=== PATIENT | female | born 1960 | race Caucasian/White ===

== ENCOUNTER 2017-01-09 10:41 | Outpatient (CLI) | payer BC | END 2017-01-09 10:42 | disposition home or self-care (01) | DX: Z00.00 Encounter for general adult medical examination without abnormal findings (principal) ==

== ENCOUNTER 2018-03-02 21:44 | Emergency (ER) | payer BC ==
--- NOTE | 2018-03-02 21:58 | ED Physician Documentation ---
PD HPI UPPER EXT INJURY - Stated complaint Stated Complaint: GLF/RT WRIST PX - Chief complaint Chief Complaint: Ext Problem - History obtained from History obtained from: Patient - History of Present Illness Location: Right, Wrist, Other (also abrasion of her lower thoracic back) Type of injury: Fall (she was trying to move her dryer and she tripped on threshold and fell backward, abrasion to right lower back, and tried to catch fall with right hand, causing pain at right wrist. Did not hit head.) Timing - onset: Today Timing - details: Abrupt onset Improved by: Immobilization Worsened by: Moving, Palpating Associated symptoms: Swelling. No: Weakness, Numbness Similar symptoms before: Has not had sx before Recently seen: Not recently seen Review of Systems Constitutional: denies: Fever, Chills Nose: denies: Rhinorrhea / runny nose, Congestion Throat: denies: Sore throat Cardiac: denies: Chest pain / pressure Respiratory: denies: Cough GI: denies: Abdominal Pain, Nausea, Vomiting, Diarrhea Skin: reports: Abrasion (s). denies: Laceration (s) Neurologic: denies: Altered mental status, Headache, Head injury PD PAST MEDICAL HISTORY - Past Medical History Past Medical History: Yes Respiratory: Asthma Musculoskeletal: Osteoarthritis, Chronic back pain - Past Surgical History Past Surgical History: Yes Ortho: Spine surgery HEENT: Tonsil/Adenoidectomy - Allergies Allergies/Adverse Reactions: Allergies Allergy/AdvReac Type Severity Reaction Status Date / Time iodine Allergy Edema Verified 03/02/18 23:07 - Social History Does the pt smoke?: No Smoking Status: Never smoker Does the pt drink ETOH?: Yes Does the pt have substance abuse?: No - Immunizations Immunizations are current?: Yes - POLST Patient has POLST: No PD ED PE NORMAL - Vitals Vital signs reviewed: Yes - General General: Alert and oriented X 3, No acute distress, Well developed/nourished - HEENT HEENT: Atraumatic - Cardiac Cardiac: RRR, No murmur - Respiratory Respiratory: Clear bilaterally - Abdomen Abdomen: Soft, Non tender - Back Back: No spinal TTP, Other (abrasions superficial right lower back. ) - Derm Derm: Normal color, Warm and dry - Extremities Extremities: Other (right wrist tender with some swelling but no deformity. ) - Neuro Neuro: Alert and oriented X 3, No motor deficit, No sensory deficit Results - Vitals Vitals: Oxygen O2 Source Room air - Rads (name of study) right wrist Radiology: Prelim report reviewed, EMP read contemporaneously PD MEDICAL DECISION MAKING - ED course Complexity details: reviewed results (no fracture), considered differential, d/ w patient Departure - Departure Disposition: 01 Home, Self Care Clinical Impression: Fall from slip, trip, or stumble Qualifiers: Encounter type: initial encounter Qualified Code(s): W01.0XXA - Fall on same level from slipping, tripping and stumbling without subsequent striking against object, initial encounter Abrasion of back Qualifiers: Encounter type: initial encounter Laterality: right Qualified Code(s): S20.411A - Abrasion of right back wall of thorax, initial encounter Right wrist sprain Qualifiers: Encounter type: initial encounter Qualified Code(s): S63.501A - Unspecified sprain of right wrist, initial encounter Condition: Stable Record reviewed to determine appropriate education?: Yes Instructions: ED Abrasion, ED Sprain Wrist Follow-Up: Izaiah Pérez, DO [Primary Care Provider] - Comments: Your x-ray appears normal without any fractures. You can use a wrist splint for the sprain and use it to protect and support the wrist. Discontinue use when it feels better enough. Tylenol or ibuprofen if needed for pains. Continue your other medications at home. Discharge Date/Time: 03/02/18 23:08
[2018-03-02 22:04] VITALS: BP 117/68
--- NOTE | 2018-03-02 22:35 | XRAY Report ---
EXAM: RIGHT WRIST RADIOGRAPHY EXAM DATE: 03/02/2018 10:27 PM. CLINICAL HISTORY: Fall, pain. COMPARISON: None. TECHNIQUE: 3 views. FINDINGS: Bones: Normal. No fractures or bone lesions. Joints: Normal. No subluxations. Soft Tissues: Mild soft tissue swelling. Pronator fat pad not distended. IMPRESSION: Soft tissue swelling. [facility] Referring Provider Line: [phone] SITE ID: [id number]
== END 2018-03-02 23:08 | disposition home or self-care (01) ==
LOC: ED 21:44
DX: S63.501A Unspecified sprain of right wrist, initial encounter (principal); S30.810A Abrasion of lower back and pelvis, initial encounter; W01.0XXA Fall on same level from slipping, tripping and stumbling without subsequent striking against object, initial encounter; Y93.E6 Activity, residential relocation; J45.909 Unspecified asthma, uncomplicated; M19.90 Unspecified osteoarthritis, unspecified site
CPT/HCPCS: 99283

== ENCOUNTER 2018-06-08 13:02 | Outpatient (CLI) | payer BC | END 2018-06-08 13:03 | disposition home or self-care (01) | LOC: SC 13:02 | PROVIDERS: ATTEND Internal Medicine Pulmonary Disease | DX: G47.30 Sleep apnea, unspecified (principal); G47.10 Hypersomnia, unspecified; G47.8 Other sleep disorders; E66.9 Obesity, unspecified; Z68.37 Body mass index [BMI] 37.0-37.9, adult | CPT/HCPCS: 99203; 99212 ==

== ENCOUNTER 2018-07-07 14:15 | Outpatient (CLI) | payer BC | END 2018-07-07 14:16 | disposition home or self-care (01) | LOC: SC 14:15 | PROVIDERS: ATTEND Nurse Practitioner Family | DX: G47.33 Obstructive sleep apnea (adult) (pediatric) (principal) | CPT/HCPCS: 99212; 99214 ==

== ENCOUNTER 2018-08-30 15:00 | Outpatient (CLI) | payer BC | END 2018-08-30 15:01 | disposition home or self-care (01) | LOC: SC 15:00 | PROVIDERS: ATTEND Internal Medicine Pulmonary Disease | DX: G47.33 Obstructive sleep apnea (adult) (pediatric) (principal) | CPT/HCPCS: 99212; 99213 ==

== ENCOUNTER 2018-10-04 14:13 | Outpatient (CLI) | payer BC | END 2018-10-04 14:14 | disposition home or self-care (01) | LOC: SC 14:13 | PROVIDERS: ATTEND Internal Medicine Pulmonary Disease | DX: G47.33 Obstructive sleep apnea (adult) (pediatric) (principal) | CPT/HCPCS: 99212; 99213 ==

== ENCOUNTER 2020-08-06 13:24 | Outpatient (CLI) | payer BC ==
[2020-08-06 14:05] LABS: CHOL/HDL RATIO 2.7 (<4.4); CHOLESTEROL 228 mg/dL; HDL CHOLESTEROL 85 mg/dL; LDL CHOLESTEROL,CALCULATED 117 mg/dL; LDL/HDL RATIO 1.4 (<4.4); VLDL CHOLESTEROL 26 mg/dL
[2020-08-06 14:39] LABS: HEMOGLOBIN A1c% 5.1 % (4.27-6.07)
== END 2020-08-06 13:25 | disposition home or self-care (01) ==
LOC: LAB 13:24
PROVIDERS: ATTEND Family Medicine
DX: Z00.00 Encounter for general adult medical examination without abnormal findings (principal); R73.01 Impaired fasting glucose; Z13.220 Encounter for screening for lipoid disorders; Z13.29 Encounter for screening for other suspected endocrine disorder; Z98.84 Bariatric surgery status
CPT/HCPCS: 36415; 80061; 82607; 83036; 83721; 84443

== ENCOUNTER 2020-10-01 08:26 | Day surgery (SDC) | payer BC ==
[2020-10-01] MEDS ORDERED: MIDAZOLAM 2 MG/2 ML VIAL IVP ONE (08:27)
[2020-10-01] MEDS ORDERED: fentaNYL 250 MCG/5 ML VIAL IVP ONE (08:27)
[2020-10-01] MEDS ORDERED: LACTATED RINGERS 1,000 ML IV ONE (09:31)
[2020-10-01] MEDS ORDERED: SIMETHICONE 40 MG/0.6 ML 30 ML BOTTLE ONE (13:08)
[2020-10-01] MEDS ORDERED: LACTATED RINGERS 700 ML IV ONE (13:10)
[2020-10-01 13:45] VITALS: BP 99/47
== END 2020-10-01 08:27 | disposition home or self-care (01) ==
LOC: SDS 08:26
PROVIDERS: ATTEND Surgery
DX: Z12.11 Encounter for screening for malignant neoplasm of colon (principal); K57.30 Diverticulosis of large intestine without perforation or abscess without bleeding; K64.8 Other hemorrhoids; Z80.0 Family history of malignant neoplasm of digestive organs; Z15.01 Genetic susceptibility to malignant neoplasm of breast
CPT/HCPCS: 45378; A9270; J3010; J7120

== ENCOUNTER 2021-08-22 08:10 | Outpatient (CLI) | payer BC ==
[2021-08-22 12:37] LABS: % IRON SATURATION 26 % (20-50); ALBUMIN 4.5 g/dL (3.2-5.5); ALKALINE PHOSPHATASE 47 IU/L (42-121); ALT ALANINE AMINOTRANSFERASE 26 IU/L (10-60); AST ASPARTATE AMINOTRANSFERASE 28 IU/L (10-42); BILIRUBIN,TOTAL 0.5 mg/dL (0.2-1.0); BUN - BLOOD UREA NITROGEN 10 mg/dL (6-20); CALCIUM 9.8 mg/dL (8.5-10.3); CARBON DIOXIDE - CO2 33 mmol/L (21-32); CHLORIDE 103 mmol/L (101-111); CHOL/HDL RATIO 2.4 (<4.4); CHOLESTEROL 219 mg/dL; CREATININE 0.5 mg/dL (0.4-1.0); GFR - MDRD 125 (>89); GLUCOSE 93 mg/dL (70-100); HDL CHOLESTEROL 90 mg/dL; IRON 85 ug/dL (28-170); LDL CHOLESTEROL,CALCULATED 114 mg/dL; LDL/HDL RATIO 1.3 (<4.4); POTASSIUM 4.3 mmol/L (3.5-5.0); SODIUM 145 mmol/L (135-145); TOTAL IRON BINDING CAPACITY 333 ug/dL (250-450); TOTAL PROTEIN 6.7 g/dL (6.7-8.2); TRANSFERRIN 238 mg/dL (192-382); TRIGLYCERIDES 75 mg/dL; VLDL CHOLESTEROL 15 mg/dL
[2021-08-22 12:46] LABS: THYROID STIMULATING HORMONE 1.09 uIU/mL (0.34-5.60)
[2021-08-22 12:52] LABS: FERRITIN 244.8 ng/mL (11.0-306.8)
[2021-08-22 12:54] LABS: ESTIMATED AVERAGE GLUCOSE 103 mg/dL (70-100); HEMOGLOBIN A1c% 5.2 % (4.27-6.07)
[2021-08-22 13:04] LABS: BASOPHILS % (AUTO) 0.4 %; EOSINOPHILS % (AUTO) 0.7 %; HCT - HEMATOCRIT 39.7 % (37.0-47.0); LYMPHOCYTES # (AUTO) 1.1 10^3/uL (1.5-3.5); LYMPHOCYTES % (AUTO) 20.3 %; MEAN CORPUSCULAR HEMOGLOBIN 30.3 pg (27.0-31.0); MEAN CORPUSCULAR HGB CONC 32.7 g/dL (32.0-36.0); MEAN CORPUSCULAR VOLUME 92.5 fL (81.0-99.0); MEAN PLATELET VOLUME 10.8 fL (7.9-10.8); MONOCYTES # (AUTO) 0.3 10^3/uL (0.0-1.0); MONOCYTES % (AUTO) 5.6 %; NEUTROPHILS % (AUTO) 72.8 %; PLT - PLATELET COUNT 212 10^3/uL (130-450); RED BLOOD COUNT 4.29 10^6/uL (4.20-5.40); RED CELL DISTRIBUTION WIDTH 12.4 % (12.0-15.0); WHITE BLOOD COUNT 5.5 x10^3/uL (4.8-10.8)
== END 2021-08-22 08:11 | disposition home or self-care (01) ==
LOC: LAB.N 08:10
PROVIDERS: ATTEND Family Medicine
DX: Z00.00 Encounter for general adult medical examination without abnormal findings (principal); R73.01 Impaired fasting glucose; Z98.84 Bariatric surgery status
CPT/HCPCS: 36415; 80053; 80061; 82728; 83036; 83540; 83721; 83970; 84443; 84466; 85025

== ENCOUNTER 2021-09-27 09:17 | Outpatient (CLI) | payer BC ==
--- NOTE | 2021-09-27 09:39 | XRAY Report ---
PROCEDURE: Hand 2 View RT INDICATIONS: CONTUSION OF RIGHT HAND TECHNIQUE: 2 views of the hand(s) acquired. COMPARISON: None available. FINDINGS: BONES: No acute, displaced fracture or dislocation. Mild osteophytosis about the first interphalangea l joint. SOFT TISSUES: No focal abnormality. IMPRESSION: 1.No acute osseous abnormality. Reviewed by: Dante Watson MD on 09/27/2021 9:37 AM PST Approved by: Dante Watson MD on 09/27/2021 9:37 AM PST Station ID: [id number]
== END 2021-09-27 23:59 | disposition home or self-care (01) ==
LOC: DI.N 09:17
PROVIDERS: ATTEND Physician Assistant
DX: S60.221A Contusion of right hand, initial encounter (principal)

== ENCOUNTER 2023-01-29 10:48 | Outpatient (CLI) | payer BC ==
[2023-01-29 18:03] LABS: BASOPHILS % (AUTO) 0.6 %; EOSINOPHILS % (AUTO) 0.9 %; HCT - HEMATOCRIT 38.1 % (37.0-47.0); HGB - HEMOGLOBIN 12.3 g/dL (12.0-16.0); LYMPHOCYTES # (AUTO) 1.3 10^3/uL (1.5-3.5); LYMPHOCYTES % (AUTO) 37.9 %; MEAN CORPUSCULAR HEMOGLOBIN 29.4 pg (27.0-31.0); MEAN CORPUSCULAR HGB CONC 32.3 g/dL (32.0-36.0); MEAN CORPUSCULAR VOLUME 90.9 fL (81.0-99.0); MEAN PLATELET VOLUME 11.1 fL (7.9-10.8); MONOCYTES # (AUTO) 0.2 10^3/uL (0.0-1.0); MONOCYTES % (AUTO) 6.9 %; NEUTROPHILS # (AUTO) 1.9 10^3/uL (1.5-6.6); NEUTROPHILS % (AUTO) 53.4 %; PLT - PLATELET COUNT 231 10^3/uL (130-450); RED BLOOD COUNT 4.19 10^6/uL (4.20-5.40); RED CELL DISTRIBUTION WIDTH 12.5 % (12.0-15.0); WHITE BLOOD COUNT 3.5 x10^3/uL (4.8-10.8)
[2023-01-29 18:17] LABS: ALBUMIN 4.3 g/dL (3.2-5.5); ALBUMIN/GLOBULIN RATIO 1.7 (1.0-2.2); ALKALINE PHOSPHATASE 48 IU/L (42-121); ALT ALANINE AMINOTRANSFERASE 23 IU/L (10-60); AST ASPARTATE AMINOTRANSFERASE 25 IU/L (10-42); BILIRUBIN,TOTAL 0.4 mg/dL (0.2-1.0); BUN - BLOOD UREA NITROGEN 13 mg/dL (6-20); CALCIUM 9.4 mg/dL (8.5-10.3); CARBON DIOXIDE - CO2 32 mmol/L (21-32); CHLORIDE 103 mmol/L (101-111); CHOL/HDL RATIO 2.5 (<4.4); CHOLESTEROL 226 mg/dL; CREATININE 0.5 mg/dL (0.4-1.0); GFR - MDRD 124 (>89); GLUCOSE 89 mg/dL (70-100); HDL CHOLESTEROL 90 mg/dL; LDL CHOLESTEROL,CALCULATED 121 mg/dL; LDL/HDL RATIO 1.3 (<4.4); POTASSIUM 4.2 mmol/L (3.5-5.0); SODIUM 141 mmol/L (135-145); TOTAL PROTEIN 6.9 g/dL (6.7-8.2); TRIGLYCERIDES 74 mg/dL; VLDL CHOLESTEROL 15 mg/dL
[2023-01-29 18:28] LABS: THYROID STIMULATING HORMONE 0.93 uIU/mL (0.34-5.60)
== END 2023-01-29 10:49 | disposition home or self-care (01) ==
LOC: LAB.N 10:48
PROVIDERS: ATTEND Orthopaedic Surgery
DX: Z00.00 Encounter for general adult medical examination without abnormal findings (principal); M48.062 Spinal stenosis, lumbar region with neurogenic claudication; Z13.220 Encounter for screening for lipoid disorders; Z13.29 Encounter for screening for other suspected endocrine disorder
CPT/HCPCS: 36415; 80053; 80061; 83721; 84443; 85025

== ENCOUNTER 2024-01-19 13:04 | Outpatient (CLI) | payer BC ==
--- NOTE | 2024-01-19 13:52 | Sleep Patient Instructions ---
Sleep Center Visit Summary - Patient Visit Information Reason for Visit: Initial consultation - Patient Instructions Additional Instructions: You will continue with CPAP therapy with pressure changed to 5-9 cmH2O. A supply prescription will be updated with your DME. I have added an order to get a new machine, please call when you get your new CPAP to set up a compliance followup. We encourage you to continue to try to lose weight. Please follow up with the sleep care office one month after getting new CPAP. - Clinic Information Contact: [facility] [address] [place] [address] [email or web address] T: [phone]
--- NOTE | 2024-01-19 14:02 | SLEEP CARE CONSULTATION ---
Information from patient questionnaire entered by Delia Gray. I have reviewed and concur with the information entered by Delia Gray. This document represents the service I personally performed and the decisions made by me, Anu Moore ARNP. History of Present Illness Service Date and Time: 01/19/2024 1304 Reason for Visit: New patient, Previously diagnosed sleep apnea, sleep apnea on CPAP therapy, Re-establish care Chief Complaint: reports: Other ([employer] FOUND HIGH CO2 LEVELS ) Date of Onset: UNKNOWN Usual bedtime: 1030-11PM Time it takes to fall asleep: 5-10MIN Snores at night: Yes Observed to quit breathing while asleep: Yes Sleeps alone due to snoring: No Number of times waking at night: 1-2 Reasons for waking at night: reports: Pain Toss, Turn, or Twitch while sleeping: Yes Recalls having dreams: No Usually gets out of bed at: 0525 Feels refreshed in the morning: Yes Morning headache: Yes Sleepy or fatigued during the day: No Ever fallen asleep while driving: No Takes day naps: No Dreams during day naps: No Prior sleep studies: Yes (2018 MER[facility]ED WITH [facility]) Additional HPI information: NITESH GONZALES was previously diagnosed to have moderate, AHI 17.1, obstructive sleep apnea-hypopnea syndrome in a study done in 2018 and comes in today to establish care for CPAP therapy. Her current complaints are high C02 levels detected by PCP. - Parasomnia Symptoms Walks in sleep: No Talks in sleep: No Ever acted out dreams in sleep: No Ever felt weak in the knees when startled or emotional: No Bothered by creepy, crawly, restless sensations in legs: Yes Problems with memory or concentration: No CPAP Compliance Data - Data Reviewed with Patient Average duration of nightly device use: 6 hours 4 minutes Compliance rate %: 94 (89/90 days used) Current pressure setting (cmH2O): 4-8 Average residual AHI: 3 Central apnea: 0.9 Obstructive apnea: 1.5 Hypopnea: 0.5 Average large leak: 3.3 L/min Compliance data discussion: She has a ResMed Airsense 10 that she received in 2018. She buys her supplies online. She uses a nasal mask, Jeovany Dreamwear, small cushion, small/med headgear. Subjective Patient concerns: denies: aerophagia, mask discomfort, air blowing in eyes, mask leak noise, condensation in mask/hose, nasal congestion, dry mouth, nose, throat, epistaxis Observed to snore while using device: No Current pressure setting perceived as: comfortable On therapy, patient: reports: sleeping better, awakening more refreshed, being more awake and alert during the day, more rested overall. 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 Patient is / and lives in [place]. Have you smoked in the past 12 months: No Cigarettes per day (20/pack): 10 Years of smokin Quit date: 1999 Smoking Pack Years: 11.5 Alcohol use: Yes Alcohol amount and frequency: 1-2 DRINKS SELDOM Caffeine use: Yes Caffeine amount and frequency: 4 CUPS DAILY Family History Family history of sleep disordered breathing: Yes Family Hx Sleep Apnea: Mother: Snoring (CHILD), Father: Snoring, Sibling: Sn oring, Other: Snoring Allergies and Home Medications Known drug allergies: Yes ( LISTED ) Drug allergies reviewed: Yes Home medication list reviewed: Yes (as listed) Allergy and home medication list: Allergies iodine Allergy (Verified 01/15/24 13:51) Edema adhesive Adverse Reaction (Verified 01/15/24 13:51) Unknown bee venom protein (honey bee) Adverse Reaction (Verified 01/15/24 13:51) Unknown shellfish derived Adverse Reaction (Verified 01/15/24 13:51) Unknown pollen Adverse Reaction (Uncoded 01/15/24 13:51) Unknown Home Medications Medication Instructions Recorded Confirmed Last Taken Type Albuterol Sulf [Ventolin Hfa 1 - 2 puffs PO Q4HR PRN 01/02/20 01/19/24 Unknown History Inhaler] Baria Tric Calcium 2 tab PO DAILY 01/02/20 01/19/24 Unknown History Epi-Pen 1 applic SQ ONCE PRN 01/02/20 01/19/24 Unknown History Escitalopram [Lexapro] 10 mg PO DAILY 01/02/20 01/19/24 Unknown History Fexofenadine HCl [Fay Allergy] 180 mg PO DAILY 01/02/20 01/19/24 09/30/20 History Fluticasone [Flonase] 1 spray FAISAL DAILY 01/02/20 01/19/24 Unknown History Gabapentin 300 mg PO QPM 01/02/20 01/19/24 09/30/20 History Multivit-Min/Iron/Folic Acid/K 2 cap PO DAILY 01/02/20 01/19/24 09/28/20 History [Bariatric Mv-Iron 45 mg Cap] Vitamin A 2,500 unit PO DAILY 01/02/20 01/19/24 09/28/20 History Albuterol Sulf [Ventolin Hfa See Rx Instructions .ROUTE .COMPLEX 01/19/24 01/19/24 Unknown History Inhaler] Calcium Carbonate [Calcium] See Rx Instructions .ROUTE .COMPLEX 01/19/24 01/19/24 Unknown History Celecoxib [Celebrex] See Rx Instructions .ROUTE .COMPLEX 01/19/24 01/19/24 Unknown History Cholecalciferol (Vitamin D3) See Rx Instructions .ROUTE .COMPLEX 01/19/24 01/19/24 Unknown History [Vitamin D3] Cyanocobalamin (Vitamin B-12) See Rx Instructions .ROUTE .COMPLEX 01/19/24 01/19/24 Unknown History [Vitamin B12] Cyclobenzaprine HCl See Rx Instructions .ROUTE .COMPLEX 01/19/24 01/19/24 Unknown History Escitalopram [Lexapro] See Rx Instructions .ROUTE .COMPLEX 01/19/24 01/19/24 Unknown History Estradiol [Vagifem] See Rx Instructions .ROUTE .COMPLEX 01/19/24 01/19/24 Unknown History Wellbutrin Xl See Rx Instructions .ROUTE .COMPLEX 01/19/24 01/19/24 Unknown History Review of Systems Weight gain over past 5 years: 30, in last year Cardiovascular: denies: high blood pressure Respiratory: reports: wheeze Urinary: reports: incontinence Neurological: reports: headaches Ear/Nose/Throat: reports: nasal congestion, sinus problems, injury to nose Endocrine: reports: increased appetite Immunologic: reports: sneezing, allergies to food or environment Physical Exam Vital signs obtained and entered by: DELIA Adkins MA Blood Pressure: 115/56 (LEFT ARM) Cuff size: regular Heart Rate: 87 O2 Saturation: 98 Height: 5 ft 7 in Weight: 193 lb 3.2 oz Body Mass Index: 30.2 BMI Classification: Obese Neck circumference: 13.75 Heart: regular rate and rhythm Lungs: clear bilaterally Impression and Plan 1. Obstructive Sleep Apnea-Hypopnea Syndrome, moderate, with good treatment compliance and good apnea control. On CPAP therapy, the patient has better sleep quality and is more rested overall. She returns because her primary was concerned about blood work which showed possible low oxygen levels or high CO2 levels. She was encouraged to come back and make sure her CPAP was delivering adequate therapy. Her therapy data does show good control of her sleep apnea however could use a little bit of a tweak. I will adjust her pressure to 5-9 cmH2O on her device. Her machine is also over 5 years old may not be performing adequately. Thus, the CPAP will be updated. She also needs a new DME supplier because she has been buying mostly online because costs have been better with her insurance. She would prefer to go through a new DME to be able to get an updated machine. A DWO prescription will be made. Compliance guidelines for new device and follow up discussed. Patient's apnea severity and rationale for treatment to reduce apnea, improve sleep quality and reduce cardiovascular and cerebrovascular events was reviewed. I also reviewed the benefit of consistent device use of CPAP for anxiety, asthma and restless legs. 2. Obesity, unspecified. Currently patients BMI is 30.2. Obesity increases the risk of apnea, CPAP pressure requirements and overall health risks especially cardiovascular and diabetes. Thus patient is advised to lose weight. * Transfer DME * Update machine * Update supplies * Change auto CPAP pressure to 5-9 cmH2O * Notify me if snoring with mask or feeling that the pressure is too much or too little * Attempt to lose weight * Call this office if any problems using CPAP * Return for follow up one month after obtaining new device, or sooner if concerns arise Counseling Topics: Spare mask, Weight loss health impact Prescriptions: Auto CPAP, Device supplies Follow up with Sleep Care in: other (compliance followup) Visit Type: In Office Time Spent with Patient (minutes): 40 Provider Statement: I spent 100% of the Face to Face Visit with the patient with greater than 50% spent counseling the patient and coordination of care.
[2024-01-19 14:08] VITALS: BP 115/56; O2SAT 98
== END 2024-01-19 13:05 | disposition home or self-care (01) ==
LOC: SC 13:04
PROVIDERS: ATTEND Nurse Practitioner Family
DX: G47.33 Obstructive sleep apnea (adult) (pediatric) (principal); E66.9 Obesity, unspecified; Z68.30 Body mass index [BMI] 30.0-30.9, adult
CPT/HCPCS: 99203; 99212

== ENCOUNTER 2024-03-02 13:44 | Outpatient (CLI) | payer BC ==
--- NOTE | 2024-03-02 14:10 | Sleep Patient Instructions ---
Sleep Center Visit Summary - Patient Visit Information Reason for Visit: First compliance with new PAP device follow-up - Patient Instructions Additional Instructions: You were here for follow up of CPAP therapy. You will be continued on CPAP therapy with pressure at 5-9 cmH2O. You should follow up with sleep care in 12 months. You may contact us sooner for any questions or concerns. - Clinic Information Contact: [facility] [address] [place] [id number] [email or web address] T: [phone]
--- NOTE | 2024-03-02 14:13 | SLEEP CARE CONSULTATION ---
Information from patient questionnaire entered by Kimmy Gray. I have reviewed and concur with the information entered by Kimmy Gray. This document represents the service I personally performed and the decisions made by , Anu Moore ARNP. History of Present Illness Service Date and Time: 03/02/2024 1344 Previous diagnosis: Moderate, Obstructive Sleep Apnea-Hypopnea Syndrome AHI: 17.1 Reason for follow up: first compliance after device update Equipment type: CPAP (RESMED Airsense 11, S/U 01/27/24) Equipment obtained from: Other ([facility]) Mask style: Nasal Mask brand: Respironics (Dreamwear) Backup mask available: Yes Last cushion change: 1 month Prior sleep studies: Yes ([address] [place] [address]) HPI additional information: NITESH GONZALES was diagnosed to have moderate, AHI 17.1, obstructive sleep apnea- hypopnea syndrome and returned today for CPAP therapy first compliance after updating device follow-up. Sleep Study - Results Prior sleep studies: Yes ([address] [place] [address]) CPAP Compliance Data - Data Reviewed with Patient Average duration of nightly device use: 5 HRS 32 MINS Compliance rate %: 83 (01/27/24-02/25/24; days used) Current pressure setting (cmH2O): 5-9 Average residual AHI: 3.2 Central apnea: 2.1 Obstructive apnea: 0.5 Hypopnea: 0.2 Average large leak: 9.5 L/min Subjective Patient concerns: denies: aerophagia, mask discomfort, air blowing in eyes, mask leak noise, condensation in mask/hose, nasal congestion, dry mouth, nose, throat, epistaxis Observed to snore while using device: No Current pressure setting perceived as: comfortable On therapy, patient: reports: sleeping better, awakening more refreshed, being more awake and alert during the day, more rested overall. denies: drowsiness while driving Initial [place] Sleepiness Scale score: 11 (01/13/24) Current [place] Sleepiness Scale score: 10 (03/02/24) Allergies and Home Medications Known drug allergies: Yes (as listed) Drug allergies reviewed: Yes Home medication list reviewed: Yes (Wellbutrin) Allergy and home medication list: Allergies hexachlorophene Allergy (Verified 02/29/24 10:31) Rash iodine Allergy (Verified 02/29/24 10:31) Edema adhesive Adverse Reaction (Verified 02/29/24 10:31) Unknown bee venom protein (honey bee) Adverse Reaction (Verified 02/29/24 10:31) Unknown shellfish derived Adverse Reaction (Verified 02/29/24 10:31) Unknown pollen Adverse Reaction (Uncoded 02/29/24 10:31) Unknown Review of Systems Review of systems same as previous: Yes (spinal SI joint injections, 2 wks ago) Physical Exam Vital signs obtained and entered by: KIMMY Adkins MA Blood Pressure: 120/60 (LEFT ARM) Cuff size: regular Heart Rate: 76 O2 Saturation: 98 Height: 5 ft 7 in Weight: 188 lb 6.4 oz Body Mass Index: 29.5 BMI Classification: Overweight Impression and Plan 1. Obstructive Sleep Apnea-Hypopnea Syndrome, moderate, with good treatment compliance and good apnea control. On CPAP therapy, the patient has better sleep quality and is more rested overall. Patient has significant improvement of their sleep apnea and is satisfied with current CPAP therapy. Patient denies problems with oral dryness, nasal congestion, epistaxis, skin irritation or aerophagia. Patient's apnea severity and rationale for treatment to reduce apnea, improve sleep quality and reduce cardiovascular and cerebrovascular events was reviewed. I also reviewed the benefit of consistent device use of CPAP for anxiety, asthma and RLS. 2. Overweight, unspecified. Currently patients BMI is 29.5. Obesity increases the risk of apnea, CPAP pressure requirements and overall health risks especially cardiovascular and diabetes. Thus patient is advised to lose weight. * Continue auto CPAP pressure at 5-9 cmH2O * Notify me if snoring with mask or feeling that the pressure is too much or too little * Attempt to lose weight * Call this office if any problems using CPAP * Return for follow up in 12 months, or sooner if concerns arise Counseling Topics: Weight loss health impact Follow up with Sleep Care in: 1 year Visit Type: In Office Time Spent with Patient (minutes): 12 Provider Statement: I spent 100% of the Face to Face Visit with the patient with greater than 50% spent counseling the patient and coordination of care.
[2024-03-02 14:14] VITALS: BP 120/60; O2SAT 98
== END 2024-03-02 13:45 | disposition home or self-care (01) ==
LOC: SC 13:44
PROVIDERS: ATTEND Nurse Practitioner Family
DX: G47.33 Obstructive sleep apnea (adult) (pediatric) (principal); E66.3 Overweight; Z68.29 Body mass index [BMI] 29.0-29.9, adult
CPT/HCPCS: 99212